=== PATIENT | female | born 1965 | race Caucasian/White ===

== ENCOUNTER 2016-07-27 07:54 | Inpatient (IN) | payer OTHER ==
[~2016-07-27] VITALS: Ht 157.5 cm; Wt 107.7 kg
[~2016-07-27 07:54] MED LIST: BUPIVACAINE 0.25%/EPI 1:200,000/PF 10 ML VIAL ONE; CLINDAMYCIN 900 MG/D5% WATER 50 ML IV ONE; CYCL10 PO; GUM MASTIC/STORAX/MSAL/ALCOHOL LIQUID 0.67 ML VIAL TP ONE; HYDR-3971 PO; PROP20 PO; RINGERS SOLUTION,LACTATED 1,000 ML IV ONE; SODIUM CHLORIDE 0.9% 0 ML ONE; SUMA20SP6 NASAL; TOPI25 PO
[2016-07-27] MEDS ORDERED: RINGERS SOLUTION,LACTATED 1,000 ML IV ONE ×2 (08:05→08:30)
[2016-07-27] MEDS ORDERED: ROPI0.255 PO ×2 (08:20→08:21)
[2016-07-27] MEDS ORDERED: PROP40TA7 PO (08:20)
[2016-07-27] MEDS ORDERED: OMEP20 PO (08:20)
[2016-07-27] MEDS ORDERED: TOPI25 PO (08:20)
[2016-07-27 08:38] LABS: BASOPHILS # (AUTO) 0.02 K/uL (0.00-0.20); BASOPHILS % (AUTO) 0.3 % (0.0-2.0); EOSINOPHILS # (AUTO) 0.14 K/uL (0.00-0.70); EOSINOPHILS % (AUTO) 2.22 % (1.0-6.0); HEMATOCRIT 33.7 % (36-46); LYMPHOCYTES # (AUTO) 1.6 K/uL (1.0-4.8); LYMPHOCYTES % (AUTO) 25.8 % (22.0-44.0); MEAN CORPUSCULAR HEMOGLOBIN 26.8 pg (26.0-34.0); MEAN CORPUSCULAR HGB CONC 32.7 G/dL (31.0-37.0); MEAN CORPUSCULAR VOLUME 82 fL (80-100); MONOCYTES # (AUTO) 0.5 K/uL (0.1-1.0); MONOCYTES % (AUTO) 7.3 % (2.0-9.0); NEUTROPHILS % (AUTO) 64.4 % (40.0-70.0); PLATELET COUNT (AUTO) 214 K/uL (150-450); WHITE BLOOD COUNT (AUTO) 6.2 K/uL (4.5-11.0)
[2016-07-27 08:45] LABS: ANION GAP 11 mmol/L (8-16); CALCIUM, TOTAL 8.6 mg/dL (8.8-10.5); CARBON DIOXIDE 23 mmol/L (22-29); CHLORIDE 105 mmol/L (98-107); CREATININE 0.68 mg/dL (0.60-1.30); GLOMERULAR FILTR. RATE CALC > 60 mL/min (>60); POTASSIUM 3.6 mmol/L (3.5-5.1); SODIUM SERUM 139 mmol/L (136-145); UREA NITROGEN, BLOOD 15 mg/dL (7-18)
[2016-07-27 08:46] LABS: PROTHROMBIN TIME 10.6 SEC (9.4-11.6)
[2016-07-27] MEDS ORDERED: HYDROmorphone 2 MG/ML SYRINGE IVP PRN (09:45)
[2016-07-27] MEDS ORDERED: MEPERIDINE-PF 25 MG/ML SYRINGE IVP PRN (09:45)
[2016-07-27] MEDS ORDERED: OXYGEN THERAPY IH SCH (09:45)
[2016-07-27] MEDS ORDERED: FentaNYL CITRATE-PF 100 MCG/2 ML VIAL IVP PRN (09:45)
[2016-07-27] MEDS ORDERED: LIDOCAINE HCL 1%/EPI 1:200,000/PF 30 ML VIAL ONE (10:10)
[2016-07-27] MEDS ORDERED: KETAMINE HCL 50 MG/ML 10 ML VIAL IVP ONE (14:19)
[2016-07-27] MEDS ORDERED: LIDOCAINE HCL/PF 2% 5 ML VIAL INJ ONE (14:19)
[2016-07-27] MEDS ORDERED: FentaNYL CITRATE-PF 250 MCG/5 ML VIAL IVP ONE (14:19)
[2016-07-27] MEDS ORDERED: MIDAZOLAM HCL 2 MG/2 ML VIAL IVP ONE (14:19)
[2016-07-27] MEDS ORDERED: DEXAMETHASONE SOD PHOS 4 MG/ML VIAL IVP ONE (14:19)
[2016-07-27] MEDS ORDERED: ONDANSETRON HCL 4 MG/2 ML VIAL IVP ONE (14:19)
[2016-07-27] MEDS ORDERED: GLYCOPYRROLATE 0.2 MG/ML VIAL IM ONE (14:19)
[2016-07-27] MEDS ORDERED: PROPOFOL 1% 20 ML VIAL IVP ONE (14:19)
[2016-07-27] MEDS ORDERED: SUCCINYLCHOLINE CHLORIDE 20 MG/ML 10 ML VIAL IVP ONE (14:19)
[2016-07-27] MEDS ORDERED: METOCLOPRAMIDE HCL 5 MG/ML 2 ML VIAL IVP ONE (14:19)
== END 2016-07-27 14:20 | disposition home or self-care (01) | DRG 460 ==
LOC: 4E 07:54
PROVIDERS: ADMIT Orthopaedic Surgery; ATTEND Orthopaedic Surgery
PROC: 4A11X4G Monitoring of Peripheral Nervous Electrical Activity, Intraoperative, External Approach (ICD-10-PCS; 2016-07-27)
PROC: 0SG00K1 Fusion of Lumbar Vertebral Joint with Nonautologous Tissue Substitute, Posterior Approach, Posterior Column, Open Approach (ICD-10-PCS; principal; 2016-07-27 10:00)
DX: M51.26 Other intervertebral disc displacement, lumbar region (principal); Z68.41 Body mass index [BMI] 40.0-44.9, adult; E66.9 Obesity, unspecified; K21.9 Gastro-esophageal reflux disease without esophagitis; M12.88 Other specific arthropathies, not elsewhere classified, other specified site; G43.909 Migraine, unspecified, not intractable, without status migrainosus; M54.30 Sciatica, unspecified side; Z98.51 Tubal ligation status; Z88.0 Allergy status to penicillin; Z83.3 Family history of diabetes mellitus; Z80.9 Family history of malignant neoplasm, unspecified; Z98.1 Arthrodesis status
CPT/HCPCS: 87081; 93005; J0330; J1100; J2250; J2405; J2704; J2765; J3010; J3490; J7120

== ENCOUNTER 2016-09-08 11:19 | Emergency (ER) | payer OTHER ==
[~2016-09-08] VITALS: Ht 157.5 cm; Wt 105.0 kg
[~2016-09-08 11:19] MED LIST changes: -BUPIVACAINE 0.25%/EPI 1:200,000/PF 10 ML VIAL ONE; -CLINDAMYCIN 900 MG/D5% WATER 50 ML IV ONE; -GUM MASTIC/STORAX/MSAL/ALCOHOL LIQUID 0.67 ML VIAL TP ONE; +OMEP20 PO; -PROP20 PO; +PROP40TA7 PO; -RINGERS SOLUTION,LACTATED 1,000 ML IV ONE; +ROPI0.255 PO; -SODIUM CHLORIDE 0.9% 0 ML ONE
[2016-09-08] MEDS ORDERED: HYDROCODONE/ACETAMINOPHEN 5-325 MG TABLET PO ONE (13:00)
[2016-09-08] MEDS ORDERED: KETOROLAC TROMETHAMINE 60 MG/2 ML VIAL IM ONE (13:00)
[2016-09-08 13:13] VITALS: BP 122/79
== END 2016-09-08 15:04 | disposition home or self-care (01) ==
LOC: EMS 11:20
DX: S33.5XXA Sprain of ligaments of lumbar spine, initial encounter (principal); G43.909 Migraine, unspecified, not intractable, without status migrainosus; Z88.0 Allergy status to penicillin; W19.XXXA Unspecified fall, initial encounter; Y93.89 Activity, other specified; Y92.89 Other specified places as the place of occurrence of the external cause; Y99.8 Other external cause status
CPT/HCPCS: 81002; 96372; 99283; J1885